=== PATIENT | female | born 1965 | race Caucasian/White ===

== ENCOUNTER → 2025-05-20 09:44 | Outpatient (REF) | payer OTHER, SELFPAY ==
[2025-05-20 11:21] LABS: Hematocrit 42.6 % (37.0-47.0); Hemoglobin 13.2 g/dL (12.0-16.0); Mean Corp Hgb Conc. 31.0 g/dL (33.0-37.0); Mean Corpuscular Volume 85.2 fL (81.0-99.0); Nucleated Red Blood Cells % 0 %; Platelet Count 349 10^3/uL (130-400); Red Cell Dist. Width 16.6 % (11.5-14.5)
[2025-05-20 11:54] LABS: Blood Urea Nitrogen 13 mg/dl (7-17); Calcium 9.3 mg/dl (8.4-10.2); Carbon Dioxide 26 mmol/L (22-30); Chloride 103 mmol/L (98-107); Glucose 73 mg/dl (70-99); Potassium 4.5 mmol/L (3.5-5.1); Sodium 139 mmol/L (135-145); eGFR > 60.00
== END ==
LOC: REG 09:44
PROVIDERS: ATTENDING PHYSICIAN Specialist; FAMILY PHYSICIAN Internal Medicine
DX: Z01.818 Encounter for other preprocedural examination (principal)
CPT/HCPCS: 36415; 80048; 85025; 93005

== ENCOUNTER 2025-06-13 11:05 | Emergency (ER) | payer OTHER, SELFPAY ==
[2025-06-13 11:35] VITALS: BP 155/112
[2025-06-13 12:20] LABS: Hematocrit 42.3 % (37.0-47.0); Hemoglobin 13.6 g/dL (12.0-16.0); Mean Corp Hgb Conc. 32.2 g/dL (33.0-37.0); Mean Corpuscular Volume 82.9 fL (81.0-99.0); Nucleated Red Blood Cells % 0 %; Platelet Count 433 10^3/uL (130-400); Red Cell Dist. Width 16.0 % (11.5-14.5)
[2025-06-13 12:25] LABS: Albumin 4.7 g/dl (3.5-5.0); Alkaline Phosphatase 114 U/L (38-126); Blood Urea Nitrogen 8 mg/dl (7-17); Calcium 9.6 mg/dl (8.4-10.2); Chloride 106 mmol/L (98-107); Lipase 72 U/L (23-300); Potassium 4.2 mmol/L (3.5-5.1); Sodium 138 mmol/L (135-145); Total Protein 8.0 g/dl (6.3-8.2)
[2025-06-13 12:35] LABS: ALT (SGPT) 71 U/L (0-35); AST (SGOT) 56 U/L (14-36); Carbon Dioxide 20 mmol/L (22-30); Glucose 135 mg/dl (70-99); eGFR > 60.00
[2025-06-13] MEDS: MORPHINE SULFATE 4 MG IV (15:25)
[2025-06-13] MEDS: NSS 1000 IV (15:26)
[2025-06-13] MEDS: ZOFRAN 4 MG IV (15:34)
[2025-06-13] MEDS: DILAUDID 1 MG IV ×2 (16:07→18:04)
--- NOTE | 2025-06-13 16:45 | ED.GENMED ---
History of Present Illness
General
Chief Complaint: Abdominal Pain
Time Seen by Provider: 06/13/25 15:01
History of Present Illness
History of Present Illness:
60-year-old female with with history of rheumatoid arthritis presenting to the emergency department for right-sided back pain. Patient reports acute onset of back pain last evening. Patient reports pain throughout the morning, which has been
worsening. She has tried medication at home without relief, Tylenol. Notes nausea and vomiting. Denies chest pain or difficulty breathing. Denies any urinary complaints. Denies history of kidney stones. Reports cholecystectomy and appendectomy
in the past. Denies fever. She is supposed to get a knee replacement tomorrow so cannot take NSAIDs. Denies additional acute medical complaints.
Phy Exam
Physical Exam
Physical Exam:
General: Well-appearing, no clinical signs of dehydration, nontoxic and in no acute distress
HEENT: protecting airway
Neck: appears supple
CV: Normal heart rate
Resp: No accessory muscle use, no increased work of breathing
Abd: Soft and non-distended, no tenderness to palpation. Mild generalized tenderness to the right thoracic back
Extremities: No deformities, no swelling
Neuro: alert, no focal neurologic deficit
: deferred
Rectal: deferred
Psych: Normal affect
Skin: Intact
Course
Orders/Labs/Results
Orders:
Orders
06/13/25 11:43
Complete Blood Count/With Diff Urgent
Comprehensive Metabolic Panel Urgent
Lipase Urgent
06/13/25 15:12
CT Abd/pelvis W Iv Cont Urgent
Comment:
Reason For Exam: right back pain, possible stone
0.9% Sodium Chloride 1000 ml [Nss] 1,000 ml IV BOLUS
Morphine Sulfate 4 mg IV NOW STA
06/13/25 15:33
Ondansetron Injectable [Zofran] 4 mg .ROUTE .[facility]
06/13/25 15:34
Ondansetron Injectable [Zofran] 4 mg IV NOW STA
06/13/25 16:05
HYDROmorphone [Dilaudid] 1 mg IV NOW STA
06/13/25 17:40
Urinalysis Reflex To Culture Urgent
Date Specimen was Collected: 06/13/25
Time Specimen was Collected: 17:38
Urine Microscopic Reflex Cult Urgent
Urine Culture Urgent
BRIANA Source: U
Specimen Description:
Date Specimen was Collected: 06/13/25
Time Specimen was Collected: 17:38
06/13/25 17:56
HYDROmorphone [Dilaudid] 1 mg IV NOW STA
06/13/25 19:04
Cephalexin Monohydrate [Keflex] 500 mg PO NOW STA
Oxycodone/Acetaminophen [Percocet 5/325] 1 tablet PO NOW STA
Abnormal Lab Results
06/13/25 06/13/25
11:43 17:40
MCH 26.7 L pg
(27.0-31.0)
MCHC 32.2 L g/dL
(33.0-37.0)
RDW 16.0 H %
(11.5-14.5)
Plt Count 433 H 10^3/uL
(130-400)
Abs Immat Gran (auto) 0.1 H 10^3/uL
(0-0.05)
Absolute Neuts (auto) 9.6 H 10^3/uL
(1.4-6.5)
Absolute Lymphs (auto) 0.7 L 10^3/uL
(1.2-3.4)
Neutrophils % 90.2 H %
(42.2-75.2)
Lymphocytes % 6.3 L %
(20.5-51.1)
Carbon Dioxide 20 L mmol/L
(22-30)
Creatinine 0.5 L mg/dL
(0.6-1.0)
Glucose 135 H mg/dl
(70-99)
AST 56 H U/L
(14-36)
ALT 71 H U/L
(0-35)
Urine Ketones 3+ A
(Negative)
Ur Occult Blood Reflex 4+ A
(Negative)
Leukocyte Esterase Rfl 1+ A
(Negative)
Urine WBC (Reflex) 11-15 A /HPF
(0-5)
Urine Bacteria (Reflex) Many A
(Negative)
Urine Albumin (Reflex) 2+ A
(Neg - Trace)
06/13/25 11:43
06/13/25 11:43
Vital Signs
Initial and Last Documented VS:
Initial Vital Signs
Temp Pulse Resp BP Pulse Ox
97.8 F 76 20 155/112 99
06/13/25 11:35 06/13/25 11:35 06/13/25 11:35 06/13/25 11:35 06/13/25 11:35
Last Documented Vital Signs
Temp Pulse Resp BP Pulse Ox
97.8 F 74 20 155/112 90
06/13/25 11:35 06/13/25 15:47 06/13/25 11:35 06/13/25 11:35 06/13/25 18:08
MDM/Problems Addressed
MDM/Problems Addressed:
60-year-old female presenting to the emergency department for right-sided back pain. Vital signs on arrival significant for hypertension.
On exam, patient is in no acute distress, however does appear uncomfortable secondary to pain. Given location of pain and patient's level of discomfort, concern for nephrolithiasis. Patient had laboratory analysis prior to my assessment, mild
transaminitis. No focal right upper quadrant pain, patient had her gallbladder resected. Lower suspicion for gallbladder pathology. Plan for CT abdominal imaging, pain control, urinalysis
19:00 - Labs are relatively unremarkable. Urine however does show some RBCs, leukocytes. Possible UTI, again versus kidney stone. However CT without significant acute pathology. Did go over CT findings with patient, as well as all of her
incidental findings. Patient noted to have possible mesenteric adenitis, however no right lower quadrant abdominal pain. There is some thickening to the urinary bladder, which could be consistent with cystitis. No mention of any abnormalities of
the kidneys, no hydronephrosis. No sign of a kidney stone. Patient's pain has improved. She would prefer to go home given that she is due to have a knee replacement tomorrow. Will start her on cephalexin for suspected UTI. Otherwise
hemodynamically stable, nontoxic. Stable for discharge. Return precautions discussed. Did advise that patient disclosed her ED visit to her orthopedic doctor tomorrow. Patient verbalized understanding
*Pulse Oximetry
SaO2: 98
Oxygen Mode of Delivery: Room air
Patient hypoxic: no
*Critical Care Note
Total Time (30-74mins, 75-104mins- exclusive of procedures): Not Applicable
ED Attending Note
-
Portions of this chart may have been created with voice recognition software.� Occasional wrong word or��sound alike� substitutions may have occurred due to the inherent limitations of voice recognition software.
Discharge Plan
Departure
Prescriptions:
No Action
quetiapine [Seroquel] 300 mg Tablet
300 mg PO HS
sertraline [Zoloft] 100 mg Tablet
200 mg PO DAILY
methotrexate 2.5 mg/mL Solution
2.5 mg PO QWEEK
Referrals:
Jose A Simms MD [Family Provider, Internal Medicine]
Interventions
Interventions:
*Risk Screen - Suicide Last Done: 06/13/25 11:35
*General Assessment Last Done: 06/13/25 15:08
*Neglect/Abuse Screening Last Done: 06/13/25 15:05
*ED- Fall Risk Assessment Last Done: 06/13/25 15:05
FB-Glrscz-Xhchomekck Assessment Last Done: 06/13/25 15:47
Discharge Date and Time
Print Language: BENINESE
[2025-06-13 18:08] LABS: Urine Character Clear (Clear)
[2025-06-13 18:28] LABS: Urine Red Blood Cell 0-2 /HPF (0-2)
[2025-06-13] MEDS: PERCOCET 5/325 1 TABLET PO (19:19)
[2025-06-13] MEDS: KEFLEX 500 MG PO (19:19)
== END 2025-06-13 20:00 | disposition home or self-care (01) ==
LOC: EMR 11:05
PROVIDERS: Emergency Medicine; EMERGENCY PHYSICIAN Student in an Organized Health Care Education/Training Program; FAMILY PHYSICIAN Internal Medicine
DX: R10.9 Unspecified abdominal pain (principal); N39.0 Urinary tract infection, site not specified; M06.9 Rheumatoid arthritis, unspecified; Z96.659 Presence of unspecified artificial knee joint
CPT/HCPCS: 99284; 96374; 96375; 96376; 96361; 74177; 80053; 81003; 81015; 83690; 85025; 87077; 87086; Q9967

== ENCOUNTER 2025-06-14 14:43 | Inpatient (IN) | payer OTHER, SELFPAY ==
[2025-06-14 10:48] VITALS: BP 122/83
--- NOTE | 2025-06-14 10:54 | ED.GENMED ---
History of Present Illness
General
Chief Complaint: Abdominal Pain
Source: patient
Exam Limitations: none
Time Seen by Provider: 06/14/25 10:52
Nursing documentation reviewed up to this point in time: agreed with
History of Present Illness
History of Present Illness:
60-year-old female with a past medical history of anxiety depression returns to the ED for continued right sided back pain that radiates towards the front. Patient was supposed to go get her knee replacement surgery today but was unable to because
of the worsening back pain. Yesterday when she was in the ED she had abdominal CT scan done which showed possible cystitis versus right lower quadrant mesenteric. She was given a dose of Keflex and she has not been able to take another dose since
then. Overall her symptoms have worsened from yesterday with more severe pain.
Past History
Past History
ED Past Medical History: None
ED Past Surgical History: Appendectomy and Cholecystectomy
Review of Systems
Review of Systems
Allergies reviewed?: Yes
Constitutional: Reports no symptoms
EENT: Reports no symptoms
Respiratory: Reports no symptoms
Cardiac: Reports no symptoms
: Reports flank pain (radiates to the front)
Musculoskeletal: Reports back pain (Right sided)
Skin: Reports no symptoms
Neurological: Reports no symptoms
Endocrine: Reports no symptoms
Hematologic/Lymphatic: Reports no symptoms
Psychiatric: Reports no symptoms
Phy Exam
General Physical Exam
General Presentation: moderate distress
General Skin: warm and dry
General Habitus: normal
General Mental: other (much pain)
General Hydration: appears well hydrated
Cardiovascular Exam
Cardiovascular Exam: regular rate/rhythm, no edema and no murmur
Pulmonary Exam
Pulmonary Exam: lungs clear, no respiratory distress, no crackles and no wheezing
Gastrointestinal Exam
Gastrointestinal Exam: normal bowel sounds, non tender, soft and non distended
Musculoskeletal Exam
Musculoskeletal Exam: back pain (Right sided radiates to the front)
Skin Exam
Skin Exam: normal color and warm/dry
Psychiatric Exam
Psychiatric Exam: anxious
Course
Orders/Labs/Results
Orders:
Orders
06/14/25 11:20
CT Abd/pel Without Iv Or Oral Urgent
Comment:
Reason For Exam: Worsening Right Flank Pain
06/14/25 11:21
Ketorolac [Toradol] 15 mg IM NOW STA
06/14/25 11:26
0.9% Sodium Chloride 500 ml [Nss] 500 ml IV BOLUS
06/14/25 11:27
IV Insert/Care/Rem.- Treatment PRN
Ondansetron Injectable [Zofran] 4 mg IV NOW STA
06/14/25 11:41
HYDROmorphone [Dilaudid] 1 mg IV NOW STA
06/14/25 12:05
Complete Blood Count/With Diff Urgent
Comprehensive Metabolic Panel Urgent
06/14/25 13:23
CefTRIAXone [Rocephin] 1,000 mg IV NOW STA
06/14/25 13:29
Urinalysis Reflex To Culture Urgent
Date Specimen was Collected: 06/14/25
Time Specimen was Collected: 13:24
Urine Microscopic Reflex Cult Urgent
Urine Culture Urgent
BRIANA Source: U
Specimen Description:
Date Specimen was Collected: 06/14/25
Time Specimen was Collected: 13:24
HYDROmorphone [Dilaudid] 1 mg IV NOW STA
Abnormal Lab Results
06/14/25 06/14/25
12:05 13:29
WBC 13.6 H 10^3/uL
(4.8-10.8)
Hgb 11.7 L g/dL
(12.0-16.0)
Hct 36.9 L %
(37.0-47.0)
MCH 26.8 L pg
(27.0-31.0)
MCHC 31.7 L g/dL
(33.0-37.0)
RDW 16.5 H %
(11.5-14.5)
Abs Immat Gran (auto) 0.1 H 10^3/uL
(0-0.05)
Absolute Neuts (auto) 11.5 H 10^3/uL
(1.4-6.5)
Absolute Lymphs (auto) 1.0 L 10^3/uL
(1.2-3.4)
Absolute Monos (auto) 1.0 H 10^3/uL
(0.1-0.6)
Neutrophils % 84.4 H %
(42.2-75.2)
Lymphocytes % 7.5 L %
(20.5-51.1)
Glucose 105 H mg/dl
(70-99)
AST 58 H U/L
(14-36)
ALT 75 H U/L
(0-35)
Total Protein 6.2 L D g/dl
(6.3-8.2)
Urine Ketones 3+ A
(Negative)
Ur Occult Blood Reflex 2+ A
(Negative)
Leukocyte Esterase Rfl 3+ A
(Negative)
Urine RBC 16-20 A /HPF
(0-2)
Urine WBC (Reflex) 26-30 A /HPF
(0-5)
Urine Bacteria (Reflex) Moderate A
(Negative)
Urine Albumin (Reflex) 1+ A
(Neg - Trace)
06/14/25 12:05
06/14/25 12:05
Vital Signs
Initial and Last Documented VS:
Initial Vital Signs
Temp Pulse Resp BP Pulse Ox
99.2 F 91 18 122/83 98
06/14/25 10:48 06/14/25 10:48 06/14/25 10:48 06/14/25 10:48 06/14/25 10:48
Last Documented Vital Signs
Temp Pulse Resp BP Pulse Ox
97.8 F 76 18 142/85 96
06/14/25 11:20 06/14/25 13:30 06/14/25 13:19 06/14/25 12:00 06/14/25 13:30
MDM/Problems Addressed
Differential Diagnosis Includes:
Nephrolithiasis, pyelonephritis, cystitis, mesenteric adenitis
MDM/Problems Addressed:
60-year-old female with a past medical history of anxiety depression returns to the ED for continued right sided back pain that radiates towards the front.
Will control pain with Toradol
Will get CT abdomen/pelvis without IV contrast, suspicion for ureteral stone
May just be adenitis causing pain, in which case supportive therapy will help manage symptoms
Will continue with IV fluids, Zofran as needed for nausea
Patient continues to have uncontrolled right flank pain, managing with Dilaudid for now
Urine cultures from yesterday growing gram-negative bacteria
Will start Rocephin 1 g IV
Awaiting final read of CT however preliminary read does not show any urinary stones
Due to worsening white count and continued worsening of back pain, will admit to hospitalist service
*Pulse Oximetry
SaO2: 98
Oxygen Mode of Delivery: Room air
Patient hypoxic: no
*Critical Care Note
Total Time (30-74mins, 75-104mins- exclusive of procedures): Not Applicable
ED Attending Note
-
Portions of this chart may have been created with voice recognition software.� Occasional wrong word or��sound alike� substitutions may have occurred due to the inherent limitations of voice recognition software.
Discharge Plan
Departure
Patient Disposition: Admit
Date of Disposition: 06/14/25
Time of Disposition: 13:58
Admit to: Med/Surg
Presentation/result/management discussed w/ accepting MD/DO: Hospitalist
Condition: Serious
Covid-19: Not Applicable
Discharge Problem:
Urinary tract infection
Prescriptions:
No Action
quetiapine [Seroquel] 300 mg Tablet
300 mg PO HS
sertraline [Zoloft] 100 mg Tablet
200 mg PO DAILY
methotrexate 2.5 mg/mL Solution
2.5 mg PO QWEEK
cephalexin 500 mg capsule
500 mg PO BID 7 Days Qty: 14 0RF
oxycodone-acetaminophen [Endocet] 5-325 mg tablet
1 tab PO Q8H PRN (Reason: Pain) Qty: 4 0RF
Referrals:
Jose A Simms MD [Family Provider, Internal Medicine]
Interventions
Interventions:
*Risk Screen - Suicide Last Done: 06/14/25 10:48
*General Assessment Last Done: 06/14/25 10:48
*Neglect/Abuse Screening Last Done: 06/14/25 11:13
*ED- Fall Risk Assessment Last Done: 06/14/25 11:13
*ED COVID-19 Vaccine History Last Done: 06/14/25 11:13
XN-Wpnzwa-Npvzifoljb Assessment Last Done: 06/14/25 11:13
Discharge Date and Time
Print Language: GERMAN
[2025-06-14] MEDS: TORADOL 15 MG IM (11:24)
[2025-06-14] MEDS: NSS 500 IV (11:32)
[2025-06-14] MEDS: ZOFRAN 4 MG IV (11:32)
[2025-06-14] MEDS: DILAUDID 1 MG IV ×2 (11:43→13:33)
[2025-06-14 11:47] VITALS: BP 151/86
[2025-06-14 12:00] VITALS: BP 142/85
[2025-06-14 12:17] LABS: Hematocrit 36.9 % (37.0-47.0); Hemoglobin 11.7 g/dL (12.0-16.0); Mean Corp Hgb Conc. 31.7 g/dL (33.0-37.0); Mean Corpuscular Volume 84.4 fL (81.0-99.0); Nucleated Red Blood Cells % 0 %; Platelet Count 312 10^3/uL (130-400); Red Cell Dist. Width 16.5 % (11.5-14.5)
[2025-06-14 12:38] LABS: ALT (SGPT) 75 U/L (0-35); AST (SGOT) 58 U/L (14-36); Albumin 3.7 g/dl (3.5-5.0); Blood Urea Nitrogen 10 mg/dl (7-17); Calcium 8.7 mg/dl (8.4-10.2); Carbon Dioxide 25 mmol/L (22-30); Chloride 107 mmol/L (98-107); Glucose 105 mg/dl (70-99); Potassium 4.0 mmol/L (3.5-5.1); Sodium 136 mmol/L (135-145); Total Protein 6.2 g/dl (6.3-8.2); eGFR > 60.00
[2025-06-14 12:43] LABS: Alkaline Phosphatase 91 U/L (38-126)
[2025-06-14] MEDS: ROCEPHIN 1000 MG IV (13:33)
[2025-06-14 13:39] LABS: Urine Character Clear (Clear)
[2025-06-14 13:51] LABS: Urine Red Blood Cell 16-20 /HPF (0-2); Urine Urothelial Cell 0-2 /LPF (FEW)
[2025-06-14 13:52] LABS: Urine White Cell 26-30 /HPF (0-5)
--- NOTE | 2025-06-14 13:53 | HPS.HSE ---
Family Physician
-
Family Physician: Jose A Simms MD
Chief Complaint
-
right flank pain
History of Present Illness
60-year-old female with a past medical history of anxiety depression returns to the ED for continued right sided back pain that radiates towards the front since Friday. laying on left side alleviates the pain. laying on the right and back makes her
nauseous, dry heaves and vomiting.patient denied fever, chills, urinary frequency, urgency and burning. denied ROBERSON,dizzy or syncope. denied chest pain,sob. denied diarrhea.
Patient was supposed to go get her knee replacement surgery today but was unable to because of the worsening back pain. Yesterday when she was in the ED she had abdominal CT scan done which showed possible cystitis versus right lower quadrant
mesenteric. She was given a dose of Keflex and she has not been able to take another dose since then.
yesterday CT with cystitis.few subcentimeter right lower quadrant mesenteric lymph nodes and some mild mesenteric stranding. Findings could represent mesenteric adenitis.At least mild relative diffuse thickening of the wall the urinary bladder most
likely due to underdistention. Other etiology such as cystitis cannot be excluded.Prior cholecystectomy. Mild extrahepatic biliary tract dilatation likely the sequela of prior cholecystectomy. Suggest correlation with LFTs.1.4 cm slightly low
attenuation right lobe hepatic lesion which becomes predominantly isodense on delayed postcontrast imaging. Most likely differential diagnostic possibility would be a hemangioma. Suggest confirmation with elective Abdominal Ultrasound or MRI as
other hepatic masses cannot be entirely excluded.
Patient received ceftriaxone for cystitis, Toradol, normal saline, Zofran in the ER
Medical History
Past Medical History
Past Medical History: Reports Other
Additional Past Medical History:
depression
anxiety
arthritis
Past Surgical History: Reports Other
Additional Past Surgical History:
appendectomy
cholecystectomy
Social History
Tobacco: Non-smoker
Alcohol: None
Drug: None
Living: With Family
Family History
Family History: Not pertinent
Allergies / Home Medications
Allergies reflects when Allergies were last updated in [employer].
Home Medications with original date entered in [facility] [employer]
Allergy/Medication List:
Allergies
Allergy/AdvReac Type Severity Reaction Status Date / Time
NKA - No Known Allergies Allergy Unknown Uncoded 06/14/25 10:50
NOT.[id number] - Not Allergy Unknown Uncoded 06/14/25 10:50
Converted 9. See Text.
Home Medications
cephalexin 500 mg capsule 500 mg PO BID 7 days #14 caps 06/13/25
methotrexate 2.5 mg/mL oral solution 2.5 mg PO QWEEK 06/13/25
oxycodone-acetaminophen 5 mg-325 mg tablet (Endocet) 1 tab PO Q8H PRN Pain #4 tabs 06/13/25
quetiapine 300 mg tablet (Seroquel) 300 mg PO HS 06/13/25
sertraline 100 mg tablet (Zoloft) 200 mg PO DAILY 06/13/25
Review of Systems
-
Constitutional: Reports No Symptoms
EENT: Reports No Symptoms
Respiratory: Reports No Symptoms
Cardiac: Reports No Symptoms
Abdomen/GI: Reports No Symptoms
: Reports Flank Pain (Right flank pain)
Musculoskeletal: Reports No Symptoms
Skin: Reports No Symptoms
Neurological: Reports No Symptoms
Endocrine: Reports No Symptoms
Hematologic/Lymphatic: Reports No Symptoms
Psych: Reports No Symptoms
Physical Exam
Vital Signs
Vital Signs
Temp Pulse Resp BP Pulse Ox
97.8 F 76 18 142/85 96
06/14/25 11:20 06/14/25 13:30 06/14/25 13:19 06/14/25 12:00 06/14/25 13:30
Physical Exam
General: Well Developed, Well Nourished and No Apparent Distress
HEENT: NormoCephalic, Moist mucous membranes and Atraumatic
Respiratory: Clear
Cardiac: S1/S2 and Regular Rhythm; No Murmur or Rub
GI: Soft, Non Tender, Non Distended and Normal Bowel Sounds; No Organomegaly
Rectal: Deferred by Provider
Musculoskeletal: No Clubbing, No Cyanosis and No Edema
Skin: No Rash
Neuro: AO x 3 and Nonfocal/grossly intact
Psych: Calm
Laboratory Results
-
06/14/25 12:05
06/14/25 12:05
Laboratory Results
Total Bilirubin 0.4 mg/dl (0.2-1.3) 06/14/25 12:05
AST 58 U/L (14-36) H 06/14/25 12:05
ALT 75 U/L (0-35) H 06/14/25 12:05
Alkaline Phosphatase 91 U/L (38-126) 06/14/25 12:05
Data Reviewed
-
CT Scan: Report Reviewed by me
Lab Data: Labs Reviewed by me
Impression/Plan
-
# Right flank pain likely from cystitis
- CT abdomen w subcentimeter right lower quadrant mesenteric lymph nodes and some mild mesenteric stranding. Findings could represent mesenteric adenitis.At least mild relative diffuse thickening of the wall the urinary bladder most likely due to
underdistention. Other etiology such as cystitis cannot be excluded.Prior cholecystectomy. Mild extrahepatic biliary tract dilatation likely the sequela of prior cholecystectomy. Suggest correlation with LFTs.1.4 cm slightly low attenuation right
lobe hepatic lesion which becomes predominantly isodense on delayed postcontrast imaging. Most likely differential diagnostic possibility would be a hemangioma. Suggest confirmation with elective Abdominal Ultrasound or MRI as other hepatic masses
cannot be entirely excluded.
- Urine cultures with gram-negative bacteria
- IV ceftriaxone
- WBC 13.7, patient is afebrile
- Repeat CT abdomen pelvis pending
-IV Toradol, Dilaudid prn for pain
-oxy prn for pain
# Transaminitis likely from acute infection
-CT from yesterday with 1.4 cm slightly low attenuation right lobe hepatic lesion which becomes predominantly isodense on delayed postcontrast imaging. Most likely differential diagnostic possibility would be a hemangioma.
- AST 58, ALT 75
-obtain abdominal US
#anxiety/depression
-Seroquel and Zoloft continued
#DVT prophylaxis
-Lovenox
#CODE status
-full code
--- NOTE | 2025-06-14 14:02 | W.PN.UPDATE ---
Update Note
Progress Note Update
This note serves as an addendum to the H&P by instrumentation manager CHANDLER�
Fidelina BALA�
HPI
60F Immunosuppressed host on MTX for HX rheumatoid arthritis back to back ER visits;
- continued right flank pain (she was here for this yesterday as well)
- CT AP IV contrast yesterday showed possible cystitis/mesenteric adenitis and was DC'd on Keflex
-Today she intractable and worsening pain consequently knee replacement surgery cancelled.
- UCX POS numerous GNR - first dose of IV CFTZ given IV Rocephin.
- Partial relief of pain despite IV Dilaudid at ER
- repeat CT AP w IV today does not show any evidence of stones (but awaiting final read by radiology), but does show some inflammation/stranding.
Relevant VS
Temp Pulse Resp BP Pulse Ox
97.8 F 76 18 142/85 96
06/14/25 11:20 06/14/25 13:30 06/14/25 13:19 06/14/25 12:00 06/14/25 13:30
PE
Gen: not toxic
HEENT: anicteric
Neck: supple
Lungs:CTA
Cor:RRR S1 s2 , no ST
Abdomen:�soft benign
TIMBER TRIMMER: AAO3
MS:no edema
Psych:Nl mood and affect
Relevant Data
06/14/25 06/14/25
12:05 13:29
WBC 13.6 H
Hgb 11.7 L
Hct 36.9 L
MCH 26.8 L
MCHC 31.7 L
RDW 16.5 H
Abs Immat Gran (auto) 0.1 H
Absolute Neuts (auto) 11.5 H
Absolute Lymphs (auto) 1.0 L
Absolute Monos (auto) 1.0 H
Neutrophils % 84.4 H
Lymphocytes % 7.5 L
Glucose 105 H
AST 58 H
ALT 75 H
Total Protein 6.2 L D
Urine Ketones 3+ A
Ur Occult Blood Reflex 2+ A
Leukocyte Esterase Rfl 3+ A
Urine RBC 16-20 A
Urine WBC (Reflex) 26-30 A
Urine Bacteria (Reflex) Moderate A
Urine Albumin (Reflex) 1+ A
06/12/25 CT AP w IV
- Likely focal glandular tissue in the left breast partially included on this study.
Cannot exclude small left breast mass. Clinical correlation recommended.
- Mild diffuse left lower lobe groundglass opacity, indeterminate, possibly inflammatory.
- Prior appendectomy. No intestinal obstruction or free air.
- Few subcentimeter right lower quadrant mesenteric lymph nodes and some mild mesenteric stranding.
Findings could represent mesenteric adenitis.
- At least mild relative diffuse thickening of the wall the urinary bladder most likely due to underdistention.
Other etiology such as cystitis cannot be excluded.
- Prior cholecystectomy.
- Mild extrahepatic biliary tract dilatation likely the sequela of prior cholecystectomy.
Suggest correlation with LFTs.
- 1.4 cm slightly low attenuation right lobe hepatic lesion which becomes predominantly isodense on delayed postcontrast imaging. Most likely differential diagnostic possibility would be a hemangioma. Suggest confirmation with elective Abdominal
Ultrasound or MRI as other hepatic masses cannot be entirely excluded.
ASSESSMENT & PLAN
Immunosuppressed host on MTX for HX rheumatoid arthritis
- stable
- Hod MTX for now
- c/w Folate
UTI w POS GNR UCx
Leucocytosis
Intractable R Flank pain
CT suggestion of cystitis and mild mesenteric stranding/mesenteric adenitis.
- Hold MTX QFri
- c/w IV CFTX
- IV NS
- f/u id and sensitivity for GNR from UCx
- PRN narcotic analgesia - pain ladder according to severity
Transaminitis
CT suggest 1.4 cm- low attenuation right lobe hepatic lesion which becomes predominantly isodense on delayed postcontrast imaging.
DDX: differential diagnostic possibility would be a hemangioma.
s/p cholecystectomy
- Complete Abdo US
- check AFP
- Trend LFTs
DVT Px: LMWH
Full code
IP MS
--- NOTE | 2025-06-14 15:09 | CM ---
CM reviewed chart and met with pt bedside in ED. Pt lives alone in first floor apartment, states apartment is [address]
Independent in ADLs, personal care and ambulation at baseline. Does have RW and cane.
No hx VN or SNF.
PCP: Jose A Simms
Pharmacy: [facility], [address] [place]
CM will continue to follow for any discharge planning needs.
[2025-06-14 15:50] VITALS: BMI 37.0
[2025-06-14] MEDS: NSS 1000 IV (15:58)
[2025-06-14 15:59] VITALS: BP 108/60
[2025-06-14] MEDS: DILAUDID 0.5 MG IV ×2 (16:28→21:08)
[2025-06-14] MEDS: LOVENOX 40 MG SC (16:33)
[2025-06-14 16:52] LABS: AFP Male/Tumor Marker 5.72 ng/ml
--- NOTE | 2025-06-14 17:18 | PTCARENOTE ---
Patient arrived to unit and ambulated to room. Complains of mild R flank pain on arrival. Reports clear yellow urine. Oriented to room. Call land within reach.
[2025-06-14] MEDS: TORADOL 15 MG IV (17:58)
[2025-06-14] MEDS: PERCOCET 5/325 1 TABLET PO (19:38)
[2025-06-14] MEDS: ZOLOFT 200 MG PO (21:07)
[2025-06-14] MEDS: SEROQUEL 300 MG PO (21:07)
[2025-06-14 23:03] VITALS: BP 96/65
[2025-06-15] VITALS: BP 108/69
[2025-06-15] MEDS: DILAUDID 0.5 MG IV ×2 (02:08→05:59)
--- NOTE | 2025-06-15 02:49 | DOWNTIME ---
There was a [employer] Client Diabetes Territory Manager Downtime on 06/15/2025 from 0100 to 06/15/2025 at 0235. Downtime documentation of patient's care, including medication administrations, has been reconciled in the electronic record per guidelines. Refer to the
patient's paper chart under the miscellaneous tab to see printed paper medication records and downtime forms.
[2025-06-15] MEDS: NSS 1000 IV ×3 (03:07→19:16)
[2025-06-15] MEDS: TORADOL 15 MG IV (05:16)
[2025-06-15] MEDS: PERCOCET 5/325 1 TABLET PO (05:27)
[2025-06-15 07:33] LABS: Hematocrit 32.6 % (37.0-47.0); Hemoglobin 10.3 g/dL (12.0-16.0); Mean Corp Hgb Conc. 31.6 g/dL (33.0-37.0); Mean Corpuscular Volume 86.0 fL (81.0-99.0); Platelet Count 263 10^3/uL (130-400); Red Cell Dist. Width 16.4 % (11.5-14.5)
[2025-06-15 07:53] VITALS: BP 124/78
[2025-06-15 08:09] LABS: ALT (SGPT) 63 U/L (0-35); AST (SGOT) 41 U/L (14-36); Albumin 3.3 g/dl (3.5-5.0); Alkaline Phosphatase 76 U/L (38-126); Blood Urea Nitrogen 8 mg/dl (7-17); Calcium 8.4 mg/dl (8.4-10.2); Carbon Dioxide 22 mmol/L (22-30); Chloride 108 mmol/L (98-107); Estimated Creatinine Clearance > 125 ml/min; Glucose 102 mg/dl (70-99); Potassium 3.8 mmol/L (3.5-5.1); Sodium 134 mmol/L (135-145); Total Protein 5.7 g/dl (6.3-8.2); eGFR > 60.00
[2025-06-15] MEDS: DILAUDID 1 MG IV ×5 (08:50→20:48)
[2025-06-15] MEDS: MAXIPIME 1000 MG IV ×2 (08:53→16:58)
[2025-06-15] MEDS: STERILE WATER FOR INJECTION 10 ML IV ×2 (08:54→17:01)
--- NOTE | 2025-06-15 09:15 | W.PN.HOSP.TC ---
Today's Communication/Plan
-
Adjust pain regimen, change to Percocet ATC increase PRN IV Dilaudid
Change to IV Cefepime
Order blood culture
c/w IVF for another day
f/w GI recommnedations
Assessment / Plan
Assessment / Plan
Physical Exam
General: Well Developed, Well Nourished and in pain.
HEENT: NormoCephalic, Moist mucous membranes and Atraumatic
Respiratory: Clear
Cardiac: S1/S2
GI: Soft, right flank tenderness.
Rectal: no bleeding
Musculoskeletal: No Clubbing, No Cyanosis and No Edema
Skin: No Rash
Neuro: AO x 3 and Nonfocal/grossly intact
Psych: Calm
# Right flank pain likely from cystitis
She is in pain, right renal colic
US and cT did not show stone
Change pain regimen to Percocet ATC with holding parameters, increase IV Dilaudid to 1 mg PRN
- Urine cultures with gram-negative bacteria
- change IV Abx to Cefepime
Normal renal function
- WBC 13.7, patient is afebrile
- CT abdomen pelvis showed right lower quadrant low-grade mesenteric adenitis versus low-grade ascending colitis. Mild colonic fecal burden. No dilated bowel loops or evidence of bowel obstruction.
- order blood culture
# Transaminitis likely from acute infection
-CT from yesterday with 1.4 cm slightly low attenuation right lobe hepatic lesion which becomes predominantly isodense on delayed postcontrast imaging. Most likely differential diagnostic possibility would be a hemangioma.
- Enzymes are coming down
f/w GI recommendations
#anxiety/depression
-Seroquel and Zoloft continued
# Mild hyponatremia
#DVT prophylaxis
-Lovenox
#CODE status
-full code
Total time spent to see the patient, examine the patient, review data and lab results, discuss treatment plan with patient, nursing staff around 55 minutes
Anticipated Discharge: > 48 hours
Subjective/Interval History
-
Date of Service: June 15, 2025
Right flank pain
Objective Data
-
Labs:
Laboratory Results
06/15/25
07:05
WBC 8.6
Hgb 10.3 L
Hct 32.6 L
Plt Count 263
Sodium 134 L
Potassium 3.8
Chloride 108 H
Carbon Dioxide 22
BUN 8
Creatinine 0.6
Glucose 102 H
Calcium 8.4
Total Bilirubin 0.3
AST 41 H
ALT 63 H
Alkaline Phosphatase 76
Vital Signs:
Vital Signs
Temp Pulse Resp BP Pulse Ox
98.4 F 78 16 124/78 93
06/15/25 07:53 06/15/25 07:53 06/15/25 07:53 06/15/25 07:53 06/15/25 07:53
[2025-06-15] MEDS: PERCOCET 5/325 2 TABLET PO ×3 (10:30→21:49)
--- NOTE | 2025-06-15 12:16 | CM ---
CM consulted for advanced directive. Spoke w/ patient, provided packet
PT eval ordered, pending at this time
--- NOTE | 2025-06-15 13:21 | CON.GI ---
Addendum entered and electronically signed by Crystal Steele Do, MD 06/15/25 15:24:
I saw and evaluated the patient. I reviewed the resident�s note and agree with findings and plan as documented in the resident�s note.
Elke is a 60yo W with h/o RA on MTX, obesity and GERD who presents for acute R sided back and hip pain. She was to have R knee replacement by Dr Duque but came instead due to this issue. 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 The pain
is significant where she cannot lay on her mackenzie well. She has chronic heartburn and reflux controlled on OTC PPI. She also uses OTC pepto. She had cholecystectomy done in the past. She denies odynophagia, vomiting, diarrhea constipation or wt
loss. She does not use chronic nsaids. Only new meds is recent abx Vitals stable exam obese W NAD conversant pleasant, laying on L sided minor TTP in R groin/back and hip. Labs reviewed . Abd US with CBD of 11 but CTAP x2 without biliary
dilation. Did show mesenteric adenitis vs low grade ascending colitis. mild fecal burden.
Impression
- Acute R back,hip, groin and flank pain
Suspect from history MSK or RA related
- Positive UA
- Mesenteric adenitis seen on CT scan
- CBD dilation to 11mm
s/p CYY
- Mildly elevated LFTs
- Liver lesion
suspect hemangioma per radiology
- Chronic knee pain
- Rheumatoid arthritis on MTX
- GERD
- Obesity
Recommendations
- D/w pt recommendation for MRI to further eval CBD and liver lesion. She declines as back pain too significant and she cannot lay on her back for study
- LFTs stable and her 2 CTAP without biliary obstruction
- Mesenteric adenitis is nonspecific finding and I do not suspect causing her severe back/groin and flank pain
- Recommend repeat CTAP in 2-3mo to ensure resolution. This can be done OP basis
- Treatment can be nsaids PRN pain
- C/w PPI increase to BID
- Denies diarrhea
- C/w regular diet
- OP follow with me in office.
Will sign off please call for ?
Original Note:
Consultation
-
Date/Time Consultation Requested: 06/15/25 06:48
Date/Time Consultation Performed: 06/15/25 11:00
Requesting Provider: Catracho Mooney MD
Performing Provider: Garth Verduzco DO (Resident); Crystal Jimenez MD
Reason for Consultation: Suspect Colitis/mesenteric adenitis
Medical History
Chief Complaint / HPI
Chief Complaint: Back Pain
History of Present Illness:
Elke Hanna is a 60F with a PMHx of GERD controlled on omeprazole, distant history of alcohol abuse, and RA who is presenting with right sided back pain. The patient locates the pain in the right lower back just superior to the iliac crest and in
the right buttocks. She states the pain started approximately 3 days ago. She describes it as a sharp, localized ball of pain without radiation. She notes that pain is alleviated by laying on her left side, and is worse with laying on her back or on
her right side. She notes that she was seen in the ED the day prior to arrival where they diagnosed her with cystitis. Admission was discussed but since the patient was stable and she had an orthopedic procedure scheduled, she was discharged home
with pain medication and PO antibiotics. Patient did not make it to her orthopedic procedure (R TKR) as the pain is now worse and radiating around the front to her groin. The pain today is described as a burning sensation. She notes nausea, dry
heaving, and vomiting of undigested food that is coincident with pain. She denies fever, chills, urinary frequency, urgency, burning, dizziness, chest pain, SOB, or diarrhea. She also denies dysphagia, uncontrolled reflux, icterus, jaundice, change
in stool caliber or color, hematochezia or melena.
ED COURSE:
WBC 13.6 Hb 11.[address] Abd/Pelvis (non-Con): Right lower quadrant low-grade mesenteric adenitis versus low-grade ascending colitis. Mild colonic fecal burden. No dilated bowel loops or evidence of bowel obstruction.
US ABdomen: Prior cholecystectomy. 11.2 mm distended common bile duct which may be related to prior cholecystectomy. If indicated, further evaluation/follow-up MRCP may be considered. Incidental finding most suggestive of benign hepatic hemangioma
measuring 2 cm.
Past Medical History
Past Medical History: Other (MDD, TRACEY, RA, GERD)
Past Surgical History: Appendectomy, Cholecystectomy and Other (denies other abdominal surgeries)
Social History
Tobacco: Former Smoker (quit 204)
Alcohol: Former (notes a history of subjectively excessive drinking prior to 7 years ago)
Drug: None
Living: With Family
Allergies / Home Medications
Allergy/AdvReac Type Severity Reaction Status Date / Time
NKA - No Known Allergies Allergy Unknown Uncoded 06/14/25 10:50
NOT.[id number] - Not Allergy Unknown Uncoded 06/14/25 10:50
Converted 9. See Text.
�Medication �Instructions �Recorded
cephalexin 500 mg capsule 500 mg PO BID 7 days #14 caps 06/13/25
quetiapine 300 mg tablet (Seroquel) 300 mg PO HS 06/13/25
sertraline 100 mg tablet (Zoloft) 200 mg PO HS 06/13/25
acetaminophen 325 mg tablet 650 mg PO Q6HPRN PRN MILD PAIN 06/14/25
(Tylenol)
bismuth subsalicylate 262 mg/15 mL 262 mg PO DAILYPRN PRN GERD 06/14/25
oral suspension (Pepto-Bismol)
folic acid 1 mg tablet 1 mg PO DAILY 06/14/25
methotrexate sodium 2.5 mg tablet 10 mg PO FR 06/14/25
oxycodone-acetaminophen 5 mg-325 1 tab PO Q8HPRN PRN severe pains 06/14/25
mg tablet (Percocet)
Review of Systems
-
History Source: Patient
All other systems: A 12 pt ROS was Negative except as stated above in HPI
Vital Signs
Temp Pulse Resp BP Pulse Ox
98.4 F 78 16 124/78 93
06/15/25 07:53 06/15/25 07:53 06/15/25 07:53 06/15/25 07:53 06/15/25 07:53
Physical Exam
Exam
General: No Apparent Distress and Other (appears uncomfortable when supine)
HEENT: Normocephalic and Anicteric
GI: Soft, Non Tender, Non Distended, Normal Bowel Sounds and Other (tenderness to palpation of the right low back, particularly just superior to R iliac crest)
Genito-urinary: No Costovertebral Tender
Skin: Warm
Neuro: Awake, Alert and Oriented
Psych: Calm
Results
WBC 8.6 10^3/uL (4.8-10.8) 06/15/25 07:05
Hgb 10.3 g/dL (12.0-16.0) L 06/15/25 07:05
Hct 32.6 % (37.0-47.0) L 06/15/25 07:05
MCV 86.0 fL (81.0-99.0) 06/15/25 07:05
Plt Count 263 10^3/uL (130-400) 06/15/25 07:05
Absolute Neuts (auto) 11.5 10^3/uL (1.4-6.5) H 06/14/25 12:05
Sodium 134 mmol/L (135-145) L 06/15/25 07:05
Potassium 3.8 mmol/L (3.5-5.1) 06/15/25 07:05
Chloride 108 mmol/L (98-107) H 06/15/25 07:05
Carbon Dioxide 22 mmol/L (22-30) 06/15/25 07:05
BUN 8 mg/dl (7-17) 06/15/25 07:05
Creatinine 0.6 mg/dL (0.6-1.0) 06/15/25 07:05
Calcium 8.4 mg/dl (8.4-10.2) 06/15/25 07:05
Total Bilirubin 0.3 mg/dl (0.2-1.3) 06/15/25 07:05
AST 41 U/L (14-36) H 06/15/25 07:05
ALT 63 U/L (0-35) H 06/15/25 07:05
Alkaline Phosphatase 76 U/L (38-126) 06/15/25 07:05
Last Colonoscopy: approx 7 years ago per patient, and was normal.
Assessment / Plan
-
Elke Hanna is a 60F with a PMhx of GERD controlled on omeprazole, distant history of alcohol abuse, and RA who is presented with continued and worsened right sided back pain after recently being diagnosed with cystitis and started on PO abx. She
also now has anemia with Hb drop from 13.6 to 10.3 over the past 2 days. Abdominal imaging showed possible mesenteric adenitis vs. low grade ascending colitis. She may have a UTI, but also be presenting with a gastrointestinal process. DDx includes
mesenteric adenitis, infectious colitis, inflammatory colitis. With blood loss I believe malignancy must be considered as well.
- Continue antibiotics in the setting of UA evidence of UTI
- ESR, CRP
- Stool studies, WBCs, fecal calprotectin
- Iron Studies in the setting of drop in Hb
- If iron studies positive for MEGHANA, consider colonoscopy as last was 7 years ago
-
-
Thank you for consultation and allowing me to participate in the patient's care. Please call the wafer fabrication operator GI physician during the after hours with any questions or concerns.
[2025-06-15 15:30] VITALS: BP 132/85
[2025-06-15] MEDS: LOVENOX 40 MG SC (17:10)
[2025-06-15] MEDS: SEROQUEL 300 MG PO (21:49)
[2025-06-15] MEDS: ZOLOFT 200 MG PO (21:49)
[2025-06-15 23:45] VITALS: BP 97/63
[2025-06-16] MEDS: MAXIPIME 1000 MG IV ×4 (00:21→23:07)
[2025-06-16] MEDS: STERILE WATER FOR INJECTION 10 ML IV ×4 (00:21→23:08)
--- NOTE | 2025-06-16 03:10 | PTCARENOTE ---
Assumed care of pt from previous nurse. Pt pain to right side managed with prn and scheduled pain medication. Pt call land is within reach, pt rings nichelle. will cont to monitor.
[2025-06-16] MEDS: DILAUDID 1 MG IV ×2 (03:16→07:51)
[2025-06-16] MEDS: NSS 1000 IV ×3 (03:16→16:41)
[2025-06-16] MEDS: PERCOCET 5/325 2 TABLET PO ×3 (04:45→21:48)
[2025-06-16 07:48] VITALS: BP 127/68
[2025-06-16 08:11] LABS: ALT (SGPT) 47 U/L (0-35); AST (SGOT) 27 U/L (14-36); Albumin 3.0 g/dl (3.5-5.0); Alkaline Phosphatase 71 U/L (38-126); Blood Urea Nitrogen 4 mg/dl (7-17); Calcium 8.5 mg/dl (8.4-10.2); Carbon Dioxide 23 mmol/L (22-30); Chloride 112 mmol/L (98-107); Estimated Creatinine Clearance > 125 ml/min; Glucose 80 mg/dl (70-99); Potassium 3.9 mmol/L (3.5-5.1); Sodium 139 mmol/L (135-145); Total Protein 5.4 g/dl (6.3-8.2); eGFR > 60.00
[2025-06-16] MEDS: TORADOL 15 MG IV (09:40)
--- NOTE | 2025-06-16 10:09 | W.PN.HOSP.TC ---
Today's Communication/Plan
-
c/w IV Cefepime
Pain control
Add Pyridium
Assessment / Plan
Assessment / Plan
Physical Exam
General: Well Developed, Well Nourished and in pain.
HEENT: NormoCephalic, Moist mucous membranes and Atraumatic
Respiratory: Clear
Cardiac: S1/S2
GI: Soft, less right lower quadrant, right flank tenderness.
Rectal: no bleeding
Musculoskeletal: No Clubbing, No Cyanosis and No Edema
Skin: No Rash
Neuro: AO x 3 and Nonfocal/grossly intact
Psych: Calm
# Right flank pain likely from cystitis
Less pain
I d/w pt, she reports tolerance for opioid, will do 2 mg of Dilaudid but less frequent
US and CAT did not show stone
c/w Percocet ATC
- Urine cultures with Klebsiella, Providencia
- changed IV Abx to Cefepime
Normal renal function
- WBC became normal, patient is afebrile
- CT abdomen pelvis showed right lower quadrant low-grade mesenteric adenitis versus low-grade ascending colitis. Mild colonic fecal burden. No dilated bowel loops or evidence of bowel obstruction.
-Blood culture is NGTD.
# Transaminitis likely from acute infection
-CT from yesterday with 1.4 cm slightly low attenuation right lobe hepatic lesion which becomes predominantly isodense on delayed postcontrast imaging. Most likely differential diagnostic possibility would be a hemangioma.
- Enzymes are coming down
Appreciate gI input, no need for intervention.
#anxiety/depression
-Seroquel and Zoloft continued
# Mild hyponatremia
#DVT prophylaxis
-Lovenox
#CODE status
-full code
Total time spent to see the patient, examine the patient, review data and lab results, discuss treatment plan with patient, nursing staff around 55 minutes
Anticipated Discharge: 24 - 48 hours
Subjective/Interval History
-
Date of Service: June 16, 2025
No chest pain
No sob
less right renal colic
Objective Data
-
Labs:
Laboratory Results
06/16/25
07:02
Sodium 139
Potassium 3.9
Chloride 112 H
Carbon Dioxide 23
BUN 4 L
Creatinine 0.5 L
Glucose 80
Calcium 8.5
Total Bilirubin 0.4
AST 27
ALT 47 H
Alkaline Phosphatase 71
Vital Signs:
Vital Signs
Temp Pulse Resp BP Pulse Ox
98 F 72 20 127/68 94
06/16/25 07:48 06/16/25 07:48 06/16/25 07:48 06/16/25 07:48 06/15/25 23:45
I&O
06/15/25 06/16/25 06/17/25
06:59 06:59 06:59
Intake Total 960 / 960
Balance 960 / 960
[2025-06-16] MEDS: DILAUDID 2 MG IV ×3 (10:55→23:08)
[2025-06-16 15:51] VITALS: BP 126/70
[2025-06-16] MEDS: PERCOCET 5/325 PO (16:36)
[2025-06-16] MEDS: LOVENOX 40 MG SC (16:41)
[2025-06-16] MEDS: SEROQUEL 300 MG PO (21:48)
[2025-06-16] MEDS: ZOLOFT 200 MG PO (21:48)
[2025-06-16 23:52] VITALS: BP 113/53
[2025-06-17] MEDS: NSS 1000 IV
[2025-06-17] MEDS: PERCOCET 5/325 2 TABLET PO (04:28)
[2025-06-17] MEDS: DILAUDID 2 MG IV ×3 (05:13→18:06)
[2025-06-17 07:38] VITALS: BP 132/79
[2025-06-17 08:49] LABS: ALT (SGPT) 40 U/L (0-35); AST (SGOT) 25 U/L (14-36); Albumin 3.2 g/dl (3.5-5.0); Alkaline Phosphatase 78 U/L (38-126); Total Protein 5.6 g/dl (6.3-8.2)
[2025-06-17] MEDS: STERILE WATER FOR INJECTION 10 ML IV (08:58)
[2025-06-17] MEDS: MAXIPIME 1000 MG IV (08:59)
[2025-06-17] MEDS: NSS IV (08:59)
[2025-06-17] MEDS: TORADOL 15 MG IV (09:09)
--- NOTE | 2025-06-17 09:21 | W.PN.HOSP.TC ---
Today's Communication/Plan
-
d/w pt about pain control. Patient reports high tolerance for opioid-Percocet was not working. Will continue with same dose of Dilaudid, change Percocet to hydrocodone/[place]
DC on Bactrim in the a.m.
Assessment / Plan
Assessment / Plan
Physical Exam
General: Well Developed, Well Nourished and in pain.
HEENT: NormoCephalic, Moist mucous membranes and Atraumatic
Respiratory: Clear
Cardiac: S1/S2
GI: Soft, less right lower quadrant, right flank tenderness.
Rectal: no bleeding
Musculoskeletal: No Clubbing, No Cyanosis and No Edema
Skin: No Rash
Neuro: AO x 3 and Nonfocal/grossly intact
Psych: Calm
# Right flank pain likely from cystitis, it seems to be combination of UTI/ muscle pain
She feels that Percocet is not doing anything and Dilaudid is not enough, reports high tolerance for opioid ( she was on 3 mg IV Dilaudid in [employer] after a surgery) > I d/w pt, will change to [place], keep same dose of Dilaudid for now
US and CAT did not show stone
- Urine cultures with Klebsiella, Providencia
- changed IV Abx to Cefepime then dc on oral antibiotic.
Normal renal function
- WBC became normal, patient is afebrile
- CT abdomen pelvis showed right lower quadrant low-grade mesenteric adenitis versus low-grade ascending colitis. Mild colonic fecal burden. No dilated bowel loops or evidence of bowel obstruction.
-Blood culture is NGTD.
# Transaminitis likely from acute infection
-CT from yesterday with 1.4 cm slightly low attenuation right lobe hepatic lesion which becomes predominantly isodense on delayed postcontrast imaging. Most likely differential diagnostic possibility would be a hemangioma.
- Enzymes are coming down
Appreciate gI input, no need for intervention.
#anxiety/depression
-Seroquel and Zoloft continued
# Mild hyponatremia
#DVT prophylaxis
-Lovenox
#CODE status
-full code
Total time spent to see the patient, examine the patient, review data and lab results, discuss treatment plan with patient, nursing staff around 55 minutes
Anticipated Discharge: Within 24 hours
Subjective/Interval History
-
Date of Service: June 17, 2025
No chest pain
She thinks 2 mg Dilaudid is not enough
Objective Data
-
Labs:
Laboratory Results
06/17/25
07:50
Total Bilirubin 0.4
AST 25
ALT 40 H
Alkaline Phosphatase 78
Vital Signs:
Vital Signs
Temp Pulse Resp BP Pulse Ox
98.0 F 73 14 132/79 96
06/17/25 07:38 06/17/25 07:38 06/17/25 07:38 06/17/25 07:38 06/17/25 07:38
I&O
06/16/25 06/17/25 06/18/25
06:59 06:59 06:59
Intake Total 960 / 960 2160 / 2160
Balance 960 / 960 2160 / 2160
[2025-06-17] MEDS: NORCO 7.5/325 2 TABLET PO ×3 (10:42→21:43)
[2025-06-17] MEDS: VALIUM INJECTION 2 MG IV (12:48)
[2025-06-17 15:15] VITALS: BP 143/73
[2025-06-17] MEDS: LOVENOX 40 MG SC (17:40)
[2025-06-17] MEDS: BACTRIM DS 800 MG/160 MG 1 TABLET PO (21:43)
[2025-06-17] MEDS: ZOLOFT 200 MG PO (21:44)
[2025-06-17] MEDS: SEROQUEL 300 MG PO (21:45)
[2025-06-17 23:44] VITALS: BP 127/78
[2025-06-18] MEDS: DILAUDID 2 MG IV (00:56)
[2025-06-18] MEDS: NORCO 7.5/325 2 TABLET PO ×2 (04:51→09:24)
[2025-06-18 07:00] VITALS: BP 131/75
[2025-06-18] MEDS: BACTRIM DS 800 MG/160 MG 1 TABLET PO (09:19)
--- NOTE | 2025-06-18 10:09 | W.PN.HOSP.TC ---
Today's Communication/Plan
-
dc
Will need to repeat blood work in few days
Assessment / Plan
Assessment / Plan
Physical Exam
General: Well Developed, Well Nourished and in pain.
HEENT: NormoCephalic, Moist mucous membranes and Atraumatic
Respiratory: Clear
Cardiac: S1/S2
GI: Soft, no right lower quadrant, no right flank tenderness.
Rectal: no bleeding
Musculoskeletal: No Clubbing, No Cyanosis and No Edema
Skin: No Rash
Neuro: AO x 3 and Nonfocal/grossly intact
Psych: Calm
# Right flank pain likely from cystitis, it seems to be combination of UTI/ muscle pain
she is feeling better, did not need IV Dilaudid
Advised to cut back on opioid and f/w her PCP or pain doctor to consider Muscle/ radiculopathy treatment
US and CAT did not show stone
- Urine cultures with Klebsiella, Providencia
- s/p IV Cefepime then dc on oral antibiotic.
Normal renal function
- WBC became normal, patient is afebrile
- CT abdomen pelvis showed right lower quadrant low-grade mesenteric adenitis versus low-grade ascending colitis. Mild colonic fecal burden. No dilated bowel loops or evidence of bowel obstruction.
-Blood culture is NGTD.
# Transaminitis likely from acute infection
-CT from yesterday with 1.4 cm slightly low attenuation right lobe hepatic lesion which becomes predominantly isodense on delayed postcontrast imaging. Most likely differential diagnostic possibility would be a hemangioma.
- Enzymes are coming down
Appreciate gI input, no need for intervention.
#anxiety/depression
-Seroquel and Zoloft continued
# Mild hyponatremia
#DVT prophylaxis
-Lovenox
#CODE status
-full code
Total discharge time spent to see the patient, examine the patient, review data and lab results, discuss discharge plan with patient, nursing staff around 65 minutes
Anticipated Discharge: Today
Subjective/Interval History
-
Date of Service: June 18, 2025
No chest pain
No flank pain
Objective Data
-
Vital Signs:
Vital Signs
Temp Pulse Resp BP Pulse Ox
98.6 F 74 16 131/75 97
06/18/25 07:00 06/18/25 07:00 06/18/25 07:00 06/18/25 07:00 06/18/25 07:00
I&O
06/17/25 06/18/25 06/19/25
06:59 06:59 06:59
Intake Total 2159
Balance 2159
--- NOTE | 2025-06-18 13:26 | CM ---
Patient has been medically cleared for discharge to home with no additional skilled services. Patient has arranged for transport home.
--- NOTE | 2025-06-18 15:49 | W.DCSUMMARY ---
Discharge Summary
Discharge Data
Date of Admission: 06/14/25
Date of Discharge: 06/18/25
-
Pending Results: No
Hospital Course
60 years old female presented with right flank pain, recent diagnosis of cystitis. She had leukocytosis and low-grade temperature around 99.2. She was diagnosed with urine tract infection. Imaging studies did not show kidney stones. Blood
culture did not show any growth. Her white count came back to normal level. Urine culture showed pansensitive Klebsiella and Providencia. Patient received several days of intravenous antibiotic with good response. Patient was noted to have
persistent right flank pain for which she needed narcotics. Later on, her pain subsided and she was able to tolerate diet and ambulate. Patient was advised to follow-up with her primary care doctor and pain management doctor to rule out
musculoskeletal/radiculopathy for which the patient had injections in the past. Patient was evaluated by b2b account executive for possible mesenteric adenitis and liver lesion resembling hemangioma shown on CT study. GI doctor did not feel her pain
was related to the findings and recommended outpatient follow-up. Patient remained hemodynamically stable. She was discharged on Bactrim to finish course of antibiotic. She was counseled regarding potential side effects of Bactrim and was given a
prescription to do blood work and follow-up with her family doctor. Patient was discharged in a stable condition.
Discharge Plan
-
Patient Disposition: Home (Routine Discharge)
Discharge Diagnosis/Procedures: - Acute R back,hip, groin and flank pain, you were given pain medications including intravenous Dilaudid, recommend outpatient follow-up with your pain management doctor or primary care doctor. You are discharged on
oral Dilaudid, avoid driving while taking narcotics.
- Mesenteric adenitis seen on CT scan/ Liver lesion, suspect hemangioma per radiology, for OP follow up with GI.
-UTI, you were given intravenous antibiotic. Blood culture came back negative. Finish course of Bactrim. Potential side effects of Bactrim include hyperkalemia, renal injury. Follow-up with your primary care doctor
Diet: As tolerated
Blood Work: BMP in few days
Referrals:
Crystal Jimenez MD [Active, Gastroenterology]
Referral Note: 4-8 wks for mesenteric adenitis
Jose A Simms MD [Family Provider, Internal Medicine] - in one to two weeks
Prescriptions:
New
sulfamethoxazole-trimethoprim 800-160 mg Tablet
1 tab PO Q12 Qty: 5 0RF
hydromorphone [Dilaudid] 4 mg tablet
4 mg PO Q6H PRN (Reason: severe pain) Qty: 20 0RF
Continued
quetiapine [Seroquel] 300 mg Tablet
300 mg PO HS
sertraline [Zoloft] 100 mg Tablet
200 mg PO HS
acetaminophen [Tylenol] 325 mg Tablet
650 mg PO Q6HPRN PRN (Reason: MILD PAIN)
methotrexate sodium 2.5 mg Tablet
10 mg PO FR
bismuth subsalicylate [Pepto-Bismol] 262 mg/15 mL Suspension
262 mg PO DAILYPRN PRN (Reason: GERD)
folic acid 1 mg Tablet
1 mg PO DAILY
Discontinued
cephalexin 500 mg capsule
500 mg PO BID 7 Days Qty: 14 0RF
Rx Instructions:
FOR 7 DAYS STARTING 06/13/25
oxycodone-acetaminophen [Percocet] 5-325 mg tablet
1 tab PO Q8HPRN PRN (Reason: severe pains)
Discharge Orders:
Discharge Patient (As Directed); Ordered 06/18/25
Ordered By: Catracho Mooney
Discharge Date and Time
Discharge Date/Time: 06/18/25 12:41
Print Language: THAI
== END 2025-06-18 12:41 | disposition home or self-care (01) | DRG 690 ==
LOC: 4 EAST ACU 14:43
PROVIDERS: Registered Nurse; ADMITTING PHYSICIAN Internal Medicine; ATTENDING PHYSICIAN Internal Medicine; CONSULT PHYSICIAN Internal Medicine Gastroenterology; EMERGENCY PHYSICIAN Emergency Medicine; FAMILY PHYSICIAN Internal Medicine
DX: N30.90 Cystitis, unspecified without hematuria (principal); D84.821 Immunodeficiency due to drugs; E87.1 Hypo-osmolality and hyponatremia; I88.0 Nonspecific mesenteric lymphadenitis; D18.03 Hemangioma of intra-abdominal structures; F41.9 Anxiety disorder, unspecified; F32.9 Major depressive disorder, single episode, unspecified; R74.01 Elevation of levels of liver transaminase levels; M06.9 Rheumatoid arthritis, unspecified; K21.9 Gastro-esophageal reflux disease without esophagitis; E66.9 Obesity, unspecified; Z68.37 Body mass index [BMI] 37.0-37.9, adult; D64.9 Anemia, unspecified; K83.8 Other specified diseases of biliary tract; G89.29 Other chronic pain; M19.90 Unspecified osteoarthritis, unspecified site; B96.1 Klebsiella pneumoniae [K. pneumoniae] as the cause of diseases classified elsewhere; Z90.49 Acquired absence of other specified parts of digestive tract; Z87.891 Personal history of nicotine dependence
CPT/HCPCS: 74176; 76705; 80048; 80053; 80076; 81003; 81015; 82105; 82248; 85025; 85027; 87040; 87086; 96372; 96374; 96375; 96376; 97162; 99285

== ENCOUNTER → 2025-09-16 10:30 | Outpatient (REF) | payer OTHER, SELFPAY ==
[2025-09-16 11:25] LABS: Hematocrit 37.6 % (37.0-47.0); Hemoglobin 11.7 g/dL (12.0-16.0); Mean Corp Hgb Conc. 31.1 g/dL (33.0-37.0); Mean Corpuscular Volume 82.8 fL (81.0-99.0); Nucleated Red Blood Cells % 0 %; Platelet Count 505 10^3/uL (130-400); Red Cell Dist. Width 15.0 % (11.5-14.5)
[2025-09-16 12:01] LABS: Blood Urea Nitrogen 9 mg/dl (7-17); Calcium 9.3 mg/dl (8.4-10.2); Carbon Dioxide 26 mmol/L (22-30); Chloride 102 mmol/L (98-107); Glucose 84 mg/dl (70-99); Potassium 4.7 mmol/L (3.5-5.1); Sodium 137 mmol/L (135-145); eGFR > 60.00
== END ==
LOC: REG 10:30
PROVIDERS: ATTENDING PHYSICIAN Specialist; FAMILY PHYSICIAN Internal Medicine
DX: Z01.818 Encounter for other preprocedural examination (principal)
CPT/HCPCS: 36415; 80048; 85025; 93005